=== PATIENT | female | born 1980 | race Caucasian/White ===

== ENCOUNTER 2016-10-14 18:10 | Emergency (ER) | payer OTHER ==
[~2016-10-14] VITALS: Ht 154.9 cm; Wt 63.7 kg
[~2016-10-14 18:10] MED LIST: ALBUTEROL SULF8.5 GM IH; ALPRAZOLAM0.25 M2 PO; ALPRAZOLAM0.5 MG PO; AMITRIPTYLINE H10 MG PO; BENTYL10 MG PO; BENTYL20 MG PO; CIPROFLOXACIN500 M1 PO; DOXYCYCLINE HY100 M3 PO; ESCITALOPRAM OX20 MG PO; FLEXERIL10 MG PO; FLEXERIL5 MG PO; FLONASE16 G1 BOTH NARES; GUAIFENESIN600 MG PO; IMITREX100 MG PO; IMODIUM A-1 MG/7.5 M PO; IMODIUM MS REL1 EACH PO; MORGIDOX100 MG PO; MOTRIN600 MG PO; MOTRIN800 MG PO; NAPROSYN500 MG PO; NOHOMEMEDS; OMEPRAZOLE20 MG PO; PERCOCET 5/31 TABLET PO; REMERON15 M2 PO; ROBITUSSIN AC,T10 ML PO; TESSALON PERLE100 MG PO; TRAMADOL HCL50 MG PO; TRAZODONE HCL50 MG PO; TRI-PREVIFEM1 EACH PO; ULTRAM50 MG PO; WELLBUTRIN SR150 MG PO; ZITHROMAX Z-PA250 MG PO; ZOFRAN ODT4 MG PO; ZOFRAN4 MG PO
[2016-10-14] MEDS ORDERED: FLEXERIL10 MG PO (18:21)
[2016-10-14] MEDS ORDERED: NORCO 5/3251 TABLET PO (18:21)
[2016-10-14 18:30] VITALS: BP 148/93
== END 2016-10-14 18:31 | disposition home or self-care (01) ==
LOC: EME 18:10
DX: S39.012A Strain of muscle, fascia and tendon of lower back, initial encounter (principal); X50.0XXA Overexertion from strenuous movement or load, initial encounter; Y93.89 Activity, other specified
CPT/HCPCS: 99281; 99283

== ENCOUNTER 2016-10-24 09:21 | Emergency (ER) | payer OTHER ==
[~2016-10-24] VITALS: Ht 157.5 cm; Wt 64.4 kg
[~2016-10-24 09:21] MED LIST changes: +NORCO 5/3251 TABLET PO
[2016-10-24 11:35] VITALS: BP 131/106
[2016-10-24] MEDS ORDERED: LIDODERM 5% P1 PATCH TD (11:39)
[2016-10-24] MEDS ORDERED: BACLOFEN10 MG PO (11:39)
== END 2016-10-24 11:35 | disposition home or self-care (01) ==
LOC: EME 09:21
DX: S39.012A Strain of muscle, fascia and tendon of lower back, initial encounter (principal); X50.9XXA Other and unspecified overexertion or strenuous movements or postures, initial encounter; Z77.22 Contact with and (suspected) exposure to environmental tobacco smoke (acute) (chronic)
CPT/HCPCS: 99281; 99285; J1885

== ENCOUNTER 2016-10-29 11:35 | Emergency (ER) | payer OTHER ==
[~2016-10-29] VITALS: Ht 157.5 cm; Wt 64.5 kg
[~2016-10-29 11:35] MED LIST changes: +BACLOFEN10 MG PO; +LIDODERM 5% P1 PATCH TD
[2016-10-29] MEDS ORDERED: LEXAPRO20 MG PO (12:26)
[2016-10-29] MEDS ORDERED: MOTRIN800 MG PO (13:45)
[2016-10-29 14:09] VITALS: BP 155/105
== END 2016-10-29 14:12 | disposition home or self-care (01) ==
LOC: EME 11:35
PROC: 2W3JX1Z Immobilization of Right Finger using Splint (ICD-10-PCS; principal; 2016-10-29)
DX: S60.051A Contusion of right little finger without damage to nail, initial encounter (principal); W22.09XA Striking against other stationary object, initial encounter; Y92.89 Other specified places as the place of occurrence of the external cause
CPT/HCPCS: 73140; 99281; 99283

== ENCOUNTER 2016-11-22 08:50 | Emergency (ER) | payer OTHER ==
[~2016-11-22] VITALS: Ht 154.9 cm; Wt 64.6 kg
[~2016-11-22 08:50] MED LIST changes: +LEXAPRO20 MG PO
[2016-11-22] MEDS ORDERED: MOTRIN800 MG PO (10:30)
[2016-11-22] MEDS ORDERED: FLEXERIL10 MG PO (10:30)
[2016-11-22 10:49] VITALS: BP 144/96
== END 2016-11-22 10:50 | disposition home or self-care (01) ==
LOC: EME 08:50
DX: S39.012A Strain of muscle, fascia and tendon of lower back, initial encounter (principal); S90.32XA Contusion of left foot, initial encounter; X50.9XXA Other and unspecified overexertion or strenuous movements or postures, initial encounter; Z88.1 Allergy status to other antibiotic agents; Z88.2 Allergy status to sulfonamides; Z91.041 Radiographic dye allergy status
CPT/HCPCS: 73630; 99281; 99284

== ENCOUNTER 2017-01-04 08:20 | Emergency (ER) | payer OTHER ==
[~2017-01-04] VITALS: Ht 157.5 cm; Wt 64.0 kg
[2017-01-04 10:08] VITALS: BP 140/94
[2017-01-04] MEDS ORDERED: FIORICET 50-301 EACH PO (10:20)
== END 2017-01-04 10:40 | disposition home or self-care (01) ==
LOC: EME 08:20
DX: G43.909 Migraine, unspecified, not intractable, without status migrainosus (principal)
CPT/HCPCS: 99281; 99284; J1200; J2765; J7030

== ENCOUNTER 2017-01-07 11:55 | Emergency (ER) | payer OTHER ==
[~2017-01-07] VITALS: Ht 157.5 cm; Wt 64.9 kg
[~2017-01-07 11:55] MED LIST changes: +FIORICET 50-301 EACH PO
[2017-01-07] MEDS ORDERED: BACLOFEN10 MG PO (13:59)
[2017-01-07] MEDS ORDERED: TYLENOL EXTRA500 MG PO (13:59)
[2017-01-07 14:27] VITALS: BP 127/99
== END 2017-01-07 14:28 | disposition home or self-care (01) ==
LOC: EME 11:55
DX: S39.012A Strain of muscle, fascia and tendon of lower back, initial encounter (principal); X50.0XXA Overexertion from strenuous movement or load, initial encounter; Z88.5 Allergy status to narcotic agent
CPT/HCPCS: 99281; 99284; J2270

== ENCOUNTER 2017-01-17 16:37 | Emergency (ER) | payer OTHER ==
[~2017-01-17] VITALS: Ht 157.5 cm; Wt 66.5 kg
[~2017-01-17 16:37] MED LIST changes: +TYLENOL EXTRA500 MG PO
[2017-01-17 19:57] VITALS: BP 141/92
== END 2017-01-17 19:58 | disposition home or self-care (01) ==
LOC: EME 16:37
PROC: 3E0234Z Introduction of Serum, Toxoid and Vaccine into Muscle, Percutaneous Approach (ICD-10-PCS; principal; 2017-01-17)
DX: S80.02XA Contusion of left knee, initial encounter (principal); S39.012A Strain of muscle, fascia and tendon of lower back, initial encounter; S80.212A Abrasion, left knee, initial encounter; W20.8XXA Other cause of strike by thrown, projected or falling object, initial encounter; Z23 Encounter for immunization
CPT/HCPCS: 73564; 99281; 99284

== ENCOUNTER 2017-01-19 15:26 | Emergency (ER) | payer OTHER ==
[~2017-01-19] VITALS: Ht 157.5 cm; Wt 64.1 kg
[2017-01-19 16:53] LABS: HEMATOCRIT 41.7 % (36.0-46.0); MCH 29.1 PG (29.0-34.0); MCHC 31.2 G/DL (30.0-36.0); MCV 93.5 FL (83-99); MEAN PLAT.VOLUME 10.1 uM^3 (9.5-12.4); PLATELET COUNT 226 K/uL (156-360); RBC DIS.WIDTH-CV 14.6 % (11.8-14.6); RBC DIS.WIDTH-SD 50.3 % (39-53); RED BLOOD COUNT 4.46 M/uL (3.80-5.20); WHITE BLOOD COUNT 14.8 K/uL (4.1-10.2)
[2017-01-19 17:01] LABS: CHLORIDE 110 mEq/L (99-109); POTASSIUM 3.8 mEq/L (3.7-5.4); SODIUM 145 mEq/L (136-147)
[2017-01-19 17:03] LABS: GLUCOSE 98 mg/dL (70-99)
[2017-01-19 17:05] LABS: ANION GAP 12 MEQ/L (2-14); TOTAL BILIRUBIN 0.2 mg/dL (0.0-1.0)
[2017-01-19 17:07] LABS: ALKALINE PHOSPHATASE 88 IU/L (3-129); GFR ESTIMATE (CALCULATED) > 59 mL/min/
[2017-01-19 17:08] LABS: UREA NITROGEN (BUN) 18 mg/dL (9-23)
[2017-01-19 17:09] LABS: DIRECT BILIRUBIN 0.2 mg/dL (0.0-0.3)
[2017-01-19 17:10] LABS: LIPASE 22 U/L (1.0-51.0)
[2017-01-19 17:40] LABS: ADD MIUA? YES; BILIRUBIN NEGATIVE; BLOOD SMALL; COLOR STRAW ((YELLOW)); GLUCOSE (STRIP) NEGATIVE; KETONES 5; LEUKOCYTES NEGATIVE; NITRITE NEGATIVE; PROTEIN (STRIP) NEGATIVE; UROBILINOGEN 0.2 MG/DL (0.2-1.0)
[2017-01-19 17:56] LABS: BACTERIA NONE SEEN /HPF; EPITHELIAL CELLS RARE /HPF; MUCUS TRACE /LPF; RED BLOOD CELLS 0-5 /HPF (0-5); UCUL ADDED? NO; WHITE BLOOD CELLS 0-5 /HPF (0-5)
[2017-01-19] MEDS ORDERED: ZOFRAN4 MG PO (18:46)
[2017-01-19 19:09] VITALS: BP 147/94
[2017-01-20] MEDS ORDERED: ZOFRAN ODT4 MG PO (22:02)
== END 2017-01-19 19:09 | disposition home or self-care (01) ==
LOC: EME 15:26 → EXP 15:26
PROVIDERS: Emergency Medicine
DX: R11.2 Nausea with vomiting, unspecified (principal); E86.0 Dehydration; R51 Headache
CPT/HCPCS: 80048; 80076; 81003; 83690; 85027; 99281; 99284; J1885; J2405; J7030

== ENCOUNTER 2017-01-20 20:43 | Emergency (ER) | payer OTHER ==
[~2017-01-20] VITALS: Ht 157.5 cm; Wt 64.4 kg
[2017-01-20 21:36] LABS: MCH 29.9 PG (29.0-34.0); MCHC 32.2 G/DL (30.0-36.0); MCV 92.8 FL (83-99); MEAN PLAT.VOLUME 10.2 uM^3 (9.5-12.4); PLATELET COUNT 215 K/uL (156-360); RBC DIS.WIDTH-CV 14.6 % (11.8-14.6); RBC DIS.WIDTH-SD 49.4 % (39-53); RED BLOOD COUNT 3.88 M/uL (3.80-5.20); WHITE BLOOD COUNT 9.7 K/uL (4.1-10.2)
[2017-01-20 21:44] LABS: CHLORIDE 109 mEq/L (99-109); POTASSIUM 3.6 mEq/L (3.7-5.4); SODIUM 140 mEq/L (136-147)
[2017-01-20 21:46] LABS: GLUCOSE 100 mg/dL (70-99)
[2017-01-20 21:47] LABS: ANION GAP 7 MEQ/L (2-14)
[2017-01-20 21:49] LABS: ALKALINE PHOSPHATASE 76 IU/L (3-129)
[2017-01-20 21:50] LABS: GFR ESTIMATE (CALCULATED) > 59 mL/min/
[2017-01-20 21:51] LABS: UREA NITROGEN (BUN) 18 mg/dL (9-23)
[2017-01-20 21:58] LABS: QUANTITATIVE HCG < 4.0 MIU/ML; TOTAL BILIRUBIN 0.1 mg/dL (0.0-1.0)
[2017-01-20] MEDS ORDERED: ZOFRAN ODT4 MG PO (22:02)
[2017-01-20 22:22] VITALS: BP 142/100
== END 2017-01-20 22:23 | disposition home or self-care (01) ==
LOC: EME 20:43
PROVIDERS: Emergency Medicine
DX: R11.2 Nausea with vomiting, unspecified (principal); R19.7 Diarrhea, unspecified; R51 Headache
CPT/HCPCS: 80053; 84702; 85027; 99281; 99285; J2405

== ENCOUNTER 2017-01-22 19:00 | Emergency (ER) | payer OTHER ==
[~2017-01-22] VITALS: Ht 157.5 cm; Wt 63.7 kg
[2017-01-22 19:24] LABS: HEMATOCRIT 39.2 % (36.0-46.0); MCH 29.5 PG (29.0-34.0); MCHC 31.9 G/DL (30.0-36.0); MCV 92.5 FL (83-99); MEAN PLAT.VOLUME 10.3 uM^3 (9.5-12.4); PLATELET COUNT 254 K/uL (156-360); RBC DIS.WIDTH-CV 14.5 % (11.8-14.6); RBC DIS.WIDTH-SD 49.1 % (39-53); RED BLOOD COUNT 4.24 M/uL (3.80-5.20); WHITE BLOOD COUNT 13.6 K/uL (4.1-10.2)
[2017-01-22 19:31] LABS: CHLORIDE 106 mEq/L (99-109); POTASSIUM 3.8 mEq/L (3.7-5.4); SODIUM 140 mEq/L (136-147)
[2017-01-22 19:33] LABS: GLUCOSE 124 mg/dL (70-99)
[2017-01-22 19:34] LABS: ANION GAP 9 MEQ/L (2-14)
[2017-01-22 19:36] LABS: ALKALINE PHOSPHATASE 73 IU/L (3-129)
[2017-01-22 19:37] LABS: GFR ESTIMATE (CALCULATED) > 59 mL/min/
[2017-01-22 19:38] LABS: TOTAL BILIRUBIN 0.4 mg/dL (0.0-1.0); UREA NITROGEN (BUN) 12 mg/dL (9-23)
[2017-01-22 19:47] LABS: QUANTITATIVE HCG < 4.0 MIU/ML
[2017-01-22] MEDS ORDERED: ZOFRAN ODT4 MG PO (21:07)
[2017-01-22 21:28] VITALS: BP 142/83
== END 2017-01-22 21:30 | disposition home or self-care (01) ==
LOC: EME 19:00
DX: R11.2 Nausea with vomiting, unspecified (principal); R19.7 Diarrhea, unspecified; R51 Headache
CPT/HCPCS: 80053; 81003; 84702; 85027; 99281; 99284; J2550

== ENCOUNTER 2017-01-31 20:41 | Emergency (ER) | payer OTHER ==
[~2017-01-31] VITALS: Ht 157.5 cm; Wt 63.1 kg
[2017-01-31] MEDS ORDERED: FLEXERIL10 MG PO (21:24)
[2017-01-31] MEDS ORDERED: NORCO 5/3251 TABLET PO (21:24)
[2017-01-31 21:59] VITALS: BP 154/100
== END 2017-01-31 22:00 | disposition home or self-care (01) ==
LOC: EME 20:41
DX: S39.012A Strain of muscle, fascia and tendon of lower back, initial encounter (principal); X50.0XXA Overexertion from strenuous movement or load, initial encounter; Y93.E9 Activity, other interior property and clothing maintenance; Z88.1 Allergy status to other antibiotic agents; Z88.6 Allergy status to analgesic agent; Z91.041 Radiographic dye allergy status
CPT/HCPCS: 99281; 99283

== ENCOUNTER 2017-02-05 03:04 | Emergency (ER) | payer OTHER ==
[~2017-02-05] VITALS: Ht 157.5 cm; Wt 64.0 kg
[2017-02-05 03:41] LABS: ADD MIUA? NO; BILIRUBIN NEGATIVE; BLOOD NEGATIVE; COLOR YELLOW ((YELLOW)); GLUCOSE (STRIP) NEGATIVE; KETONES NEGATIVE; LEUKOCYTES NEGATIVE; NITRITE NEGATIVE; PROTEIN (STRIP) NEGATIVE; SPECIFIC GRAVITY 1.017 (1.000-1.030); UCUL ADDED? NO; UROBILINOGEN 0.2 MG/DL (0.2-1.0)
[2017-02-05 03:55] LABS: HEMATOCRIT 35.3 % (36.0-46.0); MCH 30.4 PG (29.0-34.0); MCHC 32.6 G/DL (30.0-36.0); MCV 93.4 FL (83-99); RBC DIS.WIDTH-CV 14.4 % (11.8-14.6); RBC DIS.WIDTH-SD 49.4 % (39-53); RED BLOOD COUNT 3.78 M/uL (3.80-5.20); WHITE BLOOD COUNT 6.9 K/uL (4.1-10.2)
[2017-02-05 04:08] LABS: CHLORIDE 106 mEq/L (99-109); POTASSIUM 3.7 mEq/L (3.7-5.4); SODIUM 142 mEq/L (136-147)
[2017-02-05 04:10] LABS: GLUCOSE 99 mg/dL (70-99)
[2017-02-05 04:11] LABS: ANION GAP 7 MEQ/L (2-14)
[2017-02-05 04:14] LABS: GFR ESTIMATE (CALCULATED) > 59 mL/min/
[2017-02-05 04:15] LABS: UREA NITROGEN (BUN) 15 mg/dL (9-23)
[2017-02-05 04:25] LABS: QUANTITATIVE HCG < 4.0 MIU/ML
[2017-02-05] MEDS ORDERED: ANTIVERT25 MG PO (05:00)
[2017-02-05 05:08] VITALS: BP 115/90
[2017-02-05 05:14] LABS: HEMATOLOGY COMMENT 1 SMEAR COMPATIBLE; MEAN PLAT.VOLUME 10.3 uM^3 (9.5-12.4); PLAT.SUFFICIENCY ADEQUATE; PLATELET COUNT 177 K/uL (156-360)
== END 2017-02-05 05:08 | disposition home or self-care (01) ==
LOC: EME 03:04
PROVIDERS: Emergency Medicine
DX: R42 Dizziness and giddiness (principal)
CPT/HCPCS: 80048; 81003; 84702; 85027; 99281; 99284

== ENCOUNTER 2017-02-05 22:58 | Emergency (ER) | payer OTHER ==
[~2017-02-05] VITALS: Ht 157.5 cm; Wt 67.1 kg
[~2017-02-05 22:58] MED LIST changes: +ANTIVERT25 MG PO
[2017-02-05 23:14] VITALS: BP 120/85
[2017-02-05 23:38] LABS: HEMATOCRIT 36.1 % (36.0-46.0); MCH 29.5 PG (29.0-34.0); MCHC 31.9 G/DL (30.0-36.0); MCV 92.6 FL (83-99); MEAN PLAT.VOLUME 10.5 uM^3 (9.5-12.4); PLATELET COUNT 181 K/uL (156-360); RBC DIS.WIDTH-CV 14.3 % (11.8-14.6); RBC DIS.WIDTH-SD 48.3 % (39-53); WHITE BLOOD COUNT 7.7 K/uL (4.1-10.2)
[2017-02-05 23:54] LABS: CHLORIDE 106 mEq/L (99-109); POTASSIUM 3.6 mEq/L (3.7-5.4); SODIUM 142 mEq/L (136-147)
[2017-02-05 23:56] LABS: GLUCOSE 110 mg/dL (70-99)
[2017-02-05 23:57] LABS: ANION GAP 9 MEQ/L (2-14)
[2017-02-05 23:58] LABS: TOTAL BILIRUBIN 0.3 mg/dL (0.0-1.0)
[2017-02-06] LABS: ALKALINE PHOSPHATASE 81 IU/L (3-129); GFR ESTIMATE (CALCULATED) > 59 mL/min/
[2017-02-06 00:01] LABS: UREA NITROGEN (BUN) 18 mg/dL (9-23)
[2017-02-06 00:09] LABS: QUANTITATIVE HCG < 4.0 MIU/ML
== END 2017-02-06 01:33 | disposition left against medical advice (07) ==
LOC: EME 22:58
DX: F41.9 Anxiety disorder, unspecified (principal); F32.9 Major depressive disorder, single episode, unspecified; R07.9 Chest pain, unspecified; R11.0 Nausea; Z53.21 Procedure and treatment not carried out due to patient leaving prior to being seen by health care provider
CPT/HCPCS: 80053; 84702; 85027

== ENCOUNTER 2017-02-06 12:01 | Emergency (ER) | payer OTHER ==
[~2017-02-06] VITALS: Ht 157.5 cm; Wt 66.4 kg
[2017-02-06 14:06] LABS: HEMATOCRIT 38.4 % (36.0-46.0); MCH 29.6 PG (29.0-34.0); MCHC 31.5 G/DL (30.0-36.0); MCV 93.9 FL (83-99); PLATELET COUNT 193 K/uL (156-360); RBC DIS.WIDTH-CV 14.3 % (11.8-14.6); RBC DIS.WIDTH-SD 49.4 % (39-53); RED BLOOD COUNT 4.09 M/uL (3.80-5.20); WHITE BLOOD COUNT 6.7 K/uL (4.1-10.2)
[2017-02-06 14:21] LABS: D-DIMER ELISA 0.23 mg/L FEU (< 0.57)
[2017-02-06 14:24] LABS: CHLORIDE 106 mEq/L (99-109); POTASSIUM 4.1 mEq/L (3.7-5.4); SODIUM 142 mEq/L (136-147)
[2017-02-06 14:25] LABS: GLUCOSE 103 mg/dL (70-99)
[2017-02-06 14:27] LABS: ANION GAP 8 MEQ/L (2-14)
[2017-02-06 14:29] LABS: GFR ESTIMATE (CALCULATED) > 59 mL/min/; TROP-I INTERPRETATION NEGATIVE; TROPONIN-I < 0.01 ng/mL (0.0-0.30)
[2017-02-06 14:30] LABS: UREA NITROGEN (BUN) 15 mg/dL (9-23)
[2017-02-06 14:40] LABS: QUANTITATIVE HCG < 4.0 MIU/ML
[2017-02-06 15:15] VITALS: BP 120/69
== END 2017-02-06 15:16 | disposition home or self-care (01) ==
LOC: EME 12:01
PROVIDERS: Emergency Medicine
DX: R07.9 Chest pain, unspecified (principal); R73.9 Hyperglycemia, unspecified; R42 Dizziness and giddiness
CPT/HCPCS: 71020; 80048; 81003; 84484; 84702; 85027; 85379; 93005; 99281; 99285

== ENCOUNTER 2017-02-07 00:54 | Emergency (ER) | payer OTHER ==
[~2017-02-07] VITALS: Ht 157.5 cm; Wt 65.7 kg
[2017-02-07 01:42] LABS: HEMATOCRIT 34.8 % (36.0-46.0); MCH 29.7 PG (29.0-34.0); MCHC 31.9 G/DL (30.0-36.0); MEAN PLAT.VOLUME 9.9 uM^3 (9.5-12.4); PLATELET COUNT 181 K/uL (156-360); RBC DIS.WIDTH-CV 14.3 % (11.8-14.6); RBC DIS.WIDTH-SD 48.9 % (39-53); RED BLOOD COUNT 3.74 M/uL (3.80-5.20)
[2017-02-07 01:46] LABS: WHITE BLOOD COUNT 9.3 K/uL (4.1-10.2)
[2017-02-07 01:51] LABS: CHLORIDE 107 mEq/L (99-109); POTASSIUM 3.7 mEq/L (3.7-5.4); SODIUM 142 mEq/L (136-147)
[2017-02-07 01:52] LABS: GLUCOSE 100 mg/dL (70-99)
[2017-02-07 01:54] LABS: ANION GAP 10 MEQ/L (2-14)
[2017-02-07 01:56] LABS: GFR ESTIMATE (CALCULATED) > 59 mL/min/
[2017-02-07 01:59] LABS: UREA NITROGEN (BUN) 27 mg/dL (9-23)
[2017-02-07 02:06] LABS: TROP-I INTERPRETATION NEGATIVE; TROPONIN-I < 0.01 ng/mL (0.0-0.30)
[2017-02-07 02:07] LABS: QUANTITATIVE HCG < 4.0 MIU/ML
[2017-02-07 02:36] VITALS: BP 115/80
== END 2017-02-07 02:36 | disposition home or self-care (01) ==
LOC: EME 00:54
PROVIDERS: Emergency Medicine
DX: R07.9 Chest pain, unspecified (principal); F32.9 Major depressive disorder, single episode, unspecified; I10 Essential (primary) hypertension; G43.909 Migraine, unspecified, not intractable, without status migrainosus; R11.0 Nausea
CPT/HCPCS: 71010; 80048; 84484; 84702; 85027; 93005; 99281; 99284

== ENCOUNTER 2017-02-07 22:44 | Emergency (ER) | payer OTHER ==
[~2017-02-07] VITALS: Ht 157.5 cm; Wt 66.0 kg
[2017-02-07 22:52] VITALS: BP 161/104
== END 2017-02-08 01:27 | disposition left against medical advice (07) ==
LOC: EME 22:44
DX: M54.9 Dorsalgia, unspecified (principal); F41.9 Anxiety disorder, unspecified; F32.9 Major depressive disorder, single episode, unspecified; Z53.21 Procedure and treatment not carried out due to patient leaving prior to being seen by health care provider

== ENCOUNTER 2017-02-08 21:53 | Emergency (ER) | payer OTHER ==
[~2017-02-08] VITALS: Ht 157.5 cm; Wt 64.8 kg
[2017-02-08 23:36] LABS: MCH 29.8 PG (29.0-34.0); MCHC 32.2 G/DL (30.0-36.0); MCV 92.7 FL (83-99); MEAN PLAT.VOLUME 10.7 uM^3 (9.5-12.4); PLATELET COUNT 192 K/uL (156-360); RBC DIS.WIDTH-CV 14.2 % (11.8-14.6); RBC DIS.WIDTH-SD 48.7 % (39-53); RED BLOOD COUNT 3.99 M/uL (3.80-5.20)
[2017-02-08 23:38] LABS: WHITE BLOOD COUNT 8.3 K/uL (4.1-10.2)
[2017-02-09 00:07] LABS: CHLORIDE 106 mEq/L (99-109); SODIUM 140 mEq/L (136-147)
[2017-02-09 00:08] LABS: GLUCOSE 87 mg/dL (70-99)
[2017-02-09 00:09] LABS: TROP-I INTERPRETATION NEGATIVE; TROPONIN-I < 0.01 ng/mL (0.0-0.30)
[2017-02-09 00:10] LABS: ANION GAP 9 MEQ/L (2-14); POTASSIUM 3.2 mEq/L (3.7-5.4)
[2017-02-09 00:12] LABS: GFR ESTIMATE (CALCULATED) > 59 mL/min/
[2017-02-09 00:13] LABS: UREA NITROGEN (BUN) 16 mg/dL (9-23)
[2017-02-09 00:52] VITALS: BP 126/83
== END 2017-02-09 00:56 | disposition home or self-care (01) ==
LOC: EME 21:53
DX: R07.89 Other chest pain (principal); F41.9 Anxiety disorder, unspecified; I10 Essential (primary) hypertension; R53.1 Weakness; R11.0 Nausea; Z91.19 Patient's noncompliance with other medical treatment and regimen
CPT/HCPCS: 71020; 80048; 84484; 85027; 93005; 99281; 99283

== ENCOUNTER 2017-02-11 21:56 | Emergency (ER) | payer OTHER ==
[~2017-02-11] VITALS: Ht 157.5 cm; Wt 67.4 kg
[2017-02-12] MEDS ORDERED: ULTRAM50 MG PO (00:51)
[2017-02-12 01:02] VITALS: BP 110/83
[2017-02-12] MEDS ORDERED: ANTIVERT25 MG PO (15:38)
== END 2017-02-12 01:24 | disposition home or self-care (01) ==
LOC: EME 21:56
DX: M54.5 Low back pain (principal); S09.90XA Unspecified injury of head, initial encounter; W10.9XXA Fall (on) (from) unspecified stairs and steps, initial encounter; Z88.1 Allergy status to other antibiotic agents; Z88.6 Allergy status to analgesic agent; Z91.041 Radiographic dye allergy status
CPT/HCPCS: 99281; 99284

== ENCOUNTER 2017-02-12 13:40 | Emergency (ER) | payer OTHER ==
[~2017-02-12] VITALS: Ht 157.5 cm; Wt 67.2 kg
[2017-02-12 15:16] LABS: HEMATOCRIT 33.6 % (36.0-46.0); MCH 29.5 PG (29.0-34.0); MCHC 31.3 G/DL (30.0-36.0); MCV 94.4 FL (83-99); MEAN PLAT.VOLUME 10.7 uM^3 (9.5-12.4); PLATELET COUNT 166 K/uL (156-360); RBC DIS.WIDTH-SD 48.2 % (39-53); RED BLOOD COUNT 3.56 M/uL (3.80-5.20); WHITE BLOOD COUNT 8.1 K/uL (4.1-10.2)
[2017-02-12 15:34] LABS: CHLORIDE 106 mEq/L (99-109)
[2017-02-12 15:35] LABS: SODIUM 140 mEq/L (136-147)
[2017-02-12 15:37] LABS: GLUCOSE 107 mg/dL (70-99)
[2017-02-12 15:38] LABS: ANION GAP 7 MEQ/L (2-14)
[2017-02-12] MEDS ORDERED: ANTIVERT25 MG PO (15:38)
[2017-02-12 15:40] LABS: ALKALINE PHOSPHATASE 62 IU/L (3-129); GFR ESTIMATE (CALCULATED) > 59 mL/min/; POTASSIUM 4.2 mEq/L (3.7-5.4); TOTAL BILIRUBIN 0.2 mg/dL (0.0-1.0)
[2017-02-12 15:42] LABS: UREA NITROGEN (BUN) 13 mg/dL (9-23)
[2017-02-12 15:52] LABS: QUANTITATIVE HCG < 4.0 MIU/ML
[2017-02-12 16:16] VITALS: BP 122/63
== END 2017-02-12 16:18 | disposition home or self-care (01) ==
LOC: EME 13:40
PROVIDERS: Nurse Practitioner Family
DX: R42 Dizziness and giddiness (principal); I10 Essential (primary) hypertension; Z88.1 Allergy status to other antibiotic agents; Z88.6 Allergy status to analgesic agent; Z91.041 Radiographic dye allergy status
CPT/HCPCS: 80053; 84702; 85027; 99281; 99285; J2405; J7030

== ENCOUNTER 2017-02-16 18:45 | Emergency (ER) | payer OTHER ==
[~2017-02-16] VITALS: Ht 157.5 cm; Wt 65.7 kg
[2017-02-16] MEDS ORDERED: LEXAPRO20 MG PO (20:03)
[2017-02-16 20:11] VITALS: BP 127/78
[2017-02-17] MEDS ORDERED: INDERAL40 MG PO (19:10)
[2017-02-17] MEDS ORDERED: LEXAPRO20 MG PO (19:16)
[2017-02-17] MEDS ORDERED: ATARAX,VISTARIL25 MG PO (19:16)
== END 2017-02-16 20:12 | disposition home or self-care (01) ==
LOC: EME 18:45
DX: Z76.0 Encounter for issue of repeat prescription (principal); F32.9 Major depressive disorder, single episode, unspecified; F41.9 Anxiety disorder, unspecified; I10 Essential (primary) hypertension
CPT/HCPCS: 99281; 99283

== ENCOUNTER 2017-02-17 18:58 | Emergency (ER) | payer OTHER ==
[~2017-02-17] VITALS: Ht 157.5 cm; Wt 67.2 kg
[2017-02-17] MEDS ORDERED: INDERAL40 MG PO (19:10)
[2017-02-17] MEDS ORDERED: LEXAPRO20 MG PO (19:16)
[2017-02-17] MEDS ORDERED: ATARAX,VISTARIL25 MG PO (19:16)
[2017-02-17 19:28] VITALS: BP 140/99
== END 2017-02-17 19:53 | disposition home or self-care (01) ==
LOC: EME 18:58
DX: F32.9 Major depressive disorder, single episode, unspecified (principal); F41.9 Anxiety disorder, unspecified; I10 Essential (primary) hypertension; Z88.1 Allergy status to other antibiotic agents; Z88.6 Allergy status to analgesic agent; Z91.041 Radiographic dye allergy status; Z88.2 Allergy status to sulfonamides
CPT/HCPCS: 80048; 85027; 99281; 99284; G0480; Q0177

== ENCOUNTER 2017-02-18 19:10 | Emergency (ER) | payer OTHER ==
[~2017-02-18] VITALS: Ht 157.5 cm; Wt 65.1 kg
[~2017-02-18 19:10] MED LIST changes: +ATARAX,VISTARIL25 MG PO; +INDERAL40 MG PO
[2017-02-18 19:13] VITALS: BP 136/90
== END 2017-02-18 21:04 | disposition left against medical advice (07) ==
LOC: EME 19:10
DX: M54.5 Low back pain (principal); Z53.21 Procedure and treatment not carried out due to patient leaving prior to being seen by health care provider
CPT/HCPCS: 99281; 99283

== ENCOUNTER 2017-02-20 19:53 | Emergency (ER) | payer OTHER ==
[~2017-02-20] VITALS: Ht 157.5 cm; Wt 67.1 kg
[2017-02-20 20:43] LABS: CHLORIDE 107 mEq/L (99-109); HEMATOCRIT 36.4 % (36.0-46.0); MCH 29.5 PG (29.0-34.0); MCHC 32.1 G/DL (30.0-36.0); MCV 91.7 FL (83-99); MEAN PLAT.VOLUME 9.7 uM^3 (9.5-12.4); PLATELET COUNT 229 K/uL (156-360); RBC DIS.WIDTH-SD 47.3 % (39-53); RED BLOOD COUNT 3.97 M/uL (3.80-5.20); SODIUM 143 mEq/L (136-147); WHITE BLOOD COUNT 7.8 K/uL (4.1-10.2)
[2017-02-20 20:44] LABS: GLUCOSE 111 mg/dL (70-99)
[2017-02-20 20:46] LABS: ANION GAP 8 MEQ/L (2-14)
[2017-02-20 20:48] LABS: GFR ESTIMATE (CALCULATED) > 59 mL/min/
[2017-02-20 20:49] LABS: UREA NITROGEN (BUN) 14 mg/dL (9-23)
[2017-02-20 20:55] LABS: TROP-I INTERPRETATION NEGATIVE; TROPONIN-I < 0.01 ng/mL (0.0-0.30)
[2017-02-20 22:18] LABS: D-DIMER ELISA 0.27 mg/L FEU (< 0.57)
[2017-02-20 23:22] LABS: TROP-I INTERPRETATION NEGATIVE; TROPONIN-I < 0.01 ng/mL (0.0-0.30)
[2017-02-20 23:46] VITALS: BP 142/89
== END 2017-02-20 23:48 | disposition home or self-care (01) ==
LOC: EME 19:53
PROVIDERS: Emergency Medicine
DX: R07.9 Chest pain, unspecified (principal); F41.1 Generalized anxiety disorder; R06.02 Shortness of breath; R42 Dizziness and giddiness; R11.0 Nausea; I10 Essential (primary) hypertension
CPT/HCPCS: 71020; 80048; 84484; 85027; 85379; 93005; 99281; 99284

== ENCOUNTER 2017-02-23 20:43 | Emergency (ER) | payer OTHER ==
[~2017-02-23] VITALS: Ht 157.5 cm; Wt 66.7 kg
[2017-02-23 21:06] LABS: ADD MIUA? YES; BILIRUBIN NEGATIVE; BLOOD NEGATIVE; COLOR YELLOW ((YELLOW)); GLUCOSE (STRIP) NEGATIVE; KETONES NEGATIVE; LEUKOCYTES TRACE; NITRITE NEGATIVE; PROTEIN (STRIP) NEGATIVE; SPECIFIC GRAVITY 1.014 (1.000-1.030); UROBILINOGEN 0.2 MG/DL (0.2-1.0)
[2017-02-23 21:08] LABS: BACTERIA RARE /HPF; EPITHELIAL CELLS 1+ /HPF; MUCUS TRACE /LPF; RED BLOOD CELLS 0-5 /HPF (0-5); UCUL ADDED? NO; WHITE BLOOD CELLS 0-5 /HPF (0-5)
[2017-02-23 22:42] LABS: HEMATOCRIT 37.2 % (36.0-46.0); MCH 29.5 PG (29.0-34.0); MCHC 32.3 G/DL (30.0-36.0); MCV 91.4 FL (83-99); MEAN PLAT.VOLUME 10.3 uM^3 (9.5-12.4); PLATELET COUNT 234 K/uL (156-360); RBC DIS.WIDTH-CV 14.2 % (11.8-14.6); RBC DIS.WIDTH-SD 47.8 % (39-53); RED BLOOD COUNT 4.07 M/uL (3.80-5.20); WHITE BLOOD COUNT 9.1 K/uL (4.1-10.2)
[2017-02-23 22:48] LABS: CHLORIDE 107 mEq/L (99-109); POTASSIUM 3.9 mEq/L (3.7-5.4); SODIUM 141 mEq/L (136-147)
[2017-02-23 22:50] LABS: GLUCOSE 87 mg/dL (70-99)
[2017-02-23 22:52] LABS: ANION GAP 7 MEQ/L (2-14); TOTAL BILIRUBIN 0.3 mg/dL (0.0-1.0)
[2017-02-23 22:54] LABS: ALKALINE PHOSPHATASE 70 IU/L (3-129); GFR ESTIMATE (CALCULATED) > 59 mL/min/
[2017-02-23 22:55] LABS: UREA NITROGEN (BUN) 12 mg/dL (9-23)
[2017-02-23 23:06] LABS: QUANTITATIVE HCG < 4.0 MIU/ML
[2017-02-24 03:44] VITALS: BP 136/71
== END 2017-02-24 03:44 | disposition home or self-care (01) ==
LOC: EME 20:43
DX: R11.0 Nausea (principal); R10.9 Unspecified abdominal pain; I10 Essential (primary) hypertension; F32.9 Major depressive disorder, single episode, unspecified; Z88.0 Allergy status to penicillin
CPT/HCPCS: 80053; 81003; 84702; 85027; 99281; 99284

== ENCOUNTER 2017-02-26 23:20 | Emergency (ER) | payer OTHER ==
[~2017-02-26] VITALS: Ht 157.5 cm; Wt 66.4 kg
[2017-02-27] MEDS ORDERED: AUGMENTIN875 MG PO (02:00)
[2017-02-27] MEDS ORDERED: NORCO 5/3251 TABLET PO (02:00)
[2017-02-27 02:13] VITALS: BP 108/65
== END 2017-02-27 02:14 | disposition home or self-care (01) ==
LOC: EME 23:20
DX: H66.92 Otitis media, unspecified, left ear (principal); Z88.1 Allergy status to other antibiotic agents; Z88.6 Allergy status to analgesic agent; Z88.2 Allergy status to sulfonamides; Z88.5 Allergy status to narcotic agent; Z91.041 Radiographic dye allergy status; Z88.8 Allergy status to other drugs, medicaments and biological substances
CPT/HCPCS: 99281; 99284

== ENCOUNTER 2017-04-12 04:46 | Emergency (ER) | payer OTHER ==
[~2017-04-12] VITALS: Ht 157.5 cm; Wt 71.7 kg
[~2017-04-12 04:46] MED LIST changes: +AUGMENTIN875 MG PO
[2017-04-12 05:39] VITALS: BP 153/105
== END 2017-04-12 06:03 | disposition home or self-care (01) ==
LOC: EME → EDBD 04:46 → EME 04:46
DX: R51 Headache (principal); I10 Essential (primary) hypertension; F32.9 Major depressive disorder, single episode, unspecified; Z88.0 Allergy status to penicillin
CPT/HCPCS: 99281; 99285; J0780; J1200; J1885; J7030

== ENCOUNTER 2017-04-23 17:09 | Emergency (ER) | payer OTHER ==
[~2017-04-23] VITALS: Ht 160 cm; Wt 66.9 kg
[2017-04-23] MEDS ORDERED: FIORICET 50-301 EACH PO (18:18)
[2017-04-23 18:30] VITALS: BP 153/101
== END 2017-04-23 18:30 | disposition home or self-care (01) ==
LOC: EME 17:09
DX: M25.561 Pain in right knee (principal); I10 Essential (primary) hypertension; R51 Headache; Z82.49 Family history of ischemic heart disease and other diseases of the circulatory system; Z88.0 Allergy status to penicillin
CPT/HCPCS: 99281; 99283

== ENCOUNTER 2017-04-25 03:46 | Emergency (ER) | payer OTHER ==
[~2017-04-25] VITALS: Ht 157.5 cm; Wt 67.4 kg
[2017-04-25 04:45] VITALS: BP 121/84
== END 2017-04-25 04:49 | disposition home or self-care (01) ==
LOC: EME → EDBD 03:46 → EME 03:46
DX: G43.909 Migraine, unspecified, not intractable, without status migrainosus (principal); I10 Essential (primary) hypertension
CPT/HCPCS: 99281; 99284; J0780

== ENCOUNTER 2017-04-26 09:58 | Emergency (ER) | payer OTHER ==
[~2017-04-26] VITALS: Ht 157.5 cm; Wt 67.0 kg
[2017-04-26 11:14] VITALS: BP 114/74
== END 2017-04-26 11:14 | disposition home or self-care (01) ==
LOC: EME 09:58
DX: H92.03 Otalgia, bilateral (principal); G89.29 Other chronic pain; M25.561 Pain in right knee; I10 Essential (primary) hypertension
CPT/HCPCS: 73564; 99281; 99284

== ENCOUNTER 2017-05-04 15:47 | Emergency (ER) | payer OTHER ==
[~2017-05-04] VITALS: Ht 157.5 cm; Wt 68.9 kg
[2017-05-04 16:34] LABS: BASOPHIL COUNT 0.1 K/uL (0-0.1); EOSINOPHIL (%) 1.3 % (0-5); EOSINOPHIL COUNT 0.1 K/uL (0-0.3); HEMATOCRIT 35.9 % (36.0-46.0); IMMATURE GRANULOCYTE (%) 0.4 % (0.0-0.7); INSTRUMENT ABS NEUTROPHIL CT 5.9 K/uL; LYMPHOCYTE COUNT 2.3 K/uL (1.0-2.8); MCH 30.2 PG (29.0-34.0); MCHC 32.6 G/DL (30.0-36.0); MCV 92.8 FL (83-99); MEAN PLAT.VOLUME 10.2 uM^3 (9.5-12.4); MONOCYTE (%) 10.6 % (3-12); NEUTROPHIL (%) 62.4 % (45-76); NEUTROPHIL COUNT 5.9 K/uL (1.8-6.4); PLATELET COUNT 244 K/uL (156-360); RBC DIS.WIDTH-CV 14.5 % (11.8-14.6); RBC DIS.WIDTH-SD 49.1 % (39-53); RED BLOOD COUNT 3.87 M/uL (3.80-5.20); WHITE BLOOD COUNT 9.4 K/uL (4.1-10.2)
[2017-05-04 16:42] LABS: CHLORIDE 107 mEq/L (99-109); POTASSIUM 3.7 mEq/L (3.7-5.4); SODIUM 143 mEq/L (136-147)
[2017-05-04 16:44] LABS: GLUCOSE 95 mg/dL (70-99)
[2017-05-04 16:45] LABS: ANION GAP 11 MEQ/L (2-14)
[2017-05-04 16:48] LABS: GFR ESTIMATE (CALCULATED) > 59 mL/min/
[2017-05-04 16:49] LABS: UREA NITROGEN (BUN) 14 mg/dL (9-23)
[2017-05-04 16:55] LABS: TROP-I INTERPRETATION NEGATIVE; TROPONIN-I < 0.01 ng/mL (0.0-0.30)
[2017-05-04 17:48] VITALS: BP 134/89
== END 2017-05-04 17:48 | disposition home or self-care (01) ==
LOC: EME 15:47
PROVIDERS: Emergency Medicine
DX: R07.9 Chest pain, unspecified (principal)
CPT/HCPCS: 71020; 80048; 84484; 85025; 93005; 99281; 99284

== ENCOUNTER 2017-05-05 15:12 | Emergency (ER) | payer OTHER ==
[~2017-05-05] VITALS: Ht 157.5 cm; Wt 70.6 kg
[2017-05-05 18:38] VITALS: BP 127/99
== END 2017-05-05 18:39 | disposition home or self-care (01) ==
LOC: EME 15:12
DX: R51 Headache (principal); I10 Essential (primary) hypertension
CPT/HCPCS: 70450; 99281; 99284; J3030

== ENCOUNTER 2017-05-09 08:02 | Emergency (ER) | payer OTHER ==
[~2017-05-09] VITALS: Ht 157.5 cm; Wt 70.5 kg
[2017-05-09] MEDS ORDERED: AMOXICILLIN500 MG PO (09:58)
[2017-05-09] MEDS ORDERED: TYLENOL REGULA325 MG PO (09:58)
[2017-05-09 10:07] VITALS: BP 149/71
== END 2017-05-09 10:15 | disposition home or self-care (01) ==
LOC: EME 08:02
DX: J02.9 Acute pharyngitis, unspecified (principal); J40 Bronchitis, not specified as acute or chronic; H92.03 Otalgia, bilateral; Z88.1 Allergy status to other antibiotic agents
CPT/HCPCS: 99281; 99283

== ENCOUNTER 2017-08-06 21:54 | Emergency (ER) | payer OTHER ==
[~2017-08-06] VITALS: Ht 157.5 cm; Wt 68.0 kg
[~2017-08-06 21:54] MED LIST changes: +AMOXICILLIN500 MG PO; +TYLENOL REGULA325 MG PO
[2017-08-06 23:16] LABS: EOSINOPHIL COUNT 0.1 K/uL (0-0.3); HEMATOCRIT 33.1 % (36.0-46.0); IMMATURE GRANULOCYTE (%) 0.7 % (0.0-0.7); IMMATURE GRANULOCYTE COUNT 0.1 K/uL; INSTRUMENT ABS NEUTROPHIL CT 5.3 K/uL; LYMPHOCYTE COUNT 1.4 K/uL (1.0-2.8); MCH 30.2 PG (29.0-34.0); MCHC 32.6 G/DL (30.0-36.0); MCV 92.5 FL (83-99); MEAN PLAT.VOLUME 10.9 uM^3 (9.5-12.4); MONOCYTE (%) 10.3 % (3-12); MONOCYTE COUNT 0.8 K/uL (0-0.8); NEUTROPHIL (%) 69.4 % (45-76); NEUTROPHIL COUNT 5.3 K/uL (1.8-6.4); PLATELET COUNT 169 K/uL (156-360); RBC DIS.WIDTH-SD 44.4 % (39-53); RED BLOOD COUNT 3.58 M/uL (3.80-5.20); WHITE BLOOD COUNT 7.7 K/uL (4.1-10.2)
[2017-08-06 23:23] LABS: PROTHROMBIN TIME 11.9 SEC (10.2-12.9)
[2017-08-06 23:25] LABS: D-DIMER ELISA < 150.00 ng/mLDDU (<230); PTT 32.1 SEC (25-37)
[2017-08-06 23:27] LABS: CHLORIDE 108 mEq/L (99-109); POTASSIUM 3.7 mEq/L (3.7-5.4); SODIUM 141 mEq/L (136-147)
[2017-08-06 23:28] LABS: GLUCOSE 109 mg/dL (70-99)
[2017-08-06 23:30] LABS: ANION GAP 9 MEQ/L (2-14)
[2017-08-06 23:32] LABS: GFR ESTIMATE (CALCULATED) > 59 mL/min/
[2017-08-06 23:33] LABS: UREA NITROGEN (BUN) 13 mg/dL (9-23)
[2017-08-06 23:39] LABS: TROP-I INTERPRETATION NEGATIVE; TROPONIN-I < 0.01 ng/mL (0.0-0.30)
[2017-08-07] MEDS ORDERED: TYLENOL REGULA325 MG PO (00:12)
[2017-08-07 00:25] VITALS: BP 121/82
== END 2017-08-07 00:32 | disposition home or self-care (01) ==
LOC: EME → EDBD 21:54 → EME 08-07 00:32
PROVIDERS: Emergency Medicine
DX: R07.9 Chest pain, unspecified (principal); M79.605 Pain in left leg; M79.604 Pain in right leg; I10 Essential (primary) hypertension; F32.9 Major depressive disorder, single episode, unspecified; Z88.1 Allergy status to other antibiotic agents; Z88.8 Allergy status to other drugs, medicaments and biological substances
CPT/HCPCS: 71020; 80048; 84484; 85025; 85379; 85610; 85730; 99281; 99285

== ENCOUNTER 2017-08-16 09:22 | Emergency (ER) | payer OTHER ==
[~2017-08-16] VITALS: Ht 157.5 cm; Wt 69.3 kg
[2017-08-16 10:10] LABS: HEMATOCRIT 37.7 % (36.0-46.0); MCH 29.5 PG (29.0-34.0); MCHC 31.6 G/DL (30.0-36.0); MCV 93.3 FL (83-99); MEAN PLAT.VOLUME 10.4 uM^3 (9.5-12.4); RED BLOOD COUNT 4.04 M/uL (3.80-5.20); WHITE BLOOD COUNT 6.8 K/uL (4.1-10.2)
[2017-08-16 10:12] LABS: PLATELET COUNT 262 K/uL (156-360)
[2017-08-16 10:34] LABS: ANION GAP 6 MEQ/L (2-14); CHLORIDE 103 MEQ/L (99-109); POTASSIUM 3.1 MEQ/L (3.7-5.4); SAMPLE HEMOLYSIS CHECK 0; SAMPLE ICTERIC CHECK 0; SAMPLE LIPEMIA CHECK 0; SODIUM 141 MEQ/L (136-147)
[2017-08-16 10:39] LABS: GFR ESTIMATE (CALCULATED) > 59 mL/min/; GLUCOSE 104 mg/dL (70-99); UREA NITROGEN (BUN) 13 mg/dL (9-23)
[2017-08-16 11:25] LABS: ADD MIUA? YES; BILIRUBIN SMALL; BLOOD SMALL; COLOR AMBER ((YELLOW)); GLUCOSE (STRIP) NEGATIVE; KETONES 5; LEUKOCYTES LARGE; NITRITE NEGATIVE; PROTEIN (STRIP) 30; SPECIFIC GRAVITY 1.032 (1.000-1.030)
[2017-08-16 11:45] LABS: BACTERIA RARE /HPF; CALCIUM OXALATE CRYSTALS 3+ /HPF; EPITHELIAL CELLS 2+ /HPF; MUCUS 1+ /LPF; UCUL ADDED? YES; WHITE BLOOD CELLS 40-50 /HPF (0-5)
[2017-08-16] MEDS ORDERED: ZOFRAN ODT8 MG PO (12:24)
[2017-08-16] MEDS ORDERED: KEFLEX500 MG PO (12:24)
[2017-08-16 13:02] VITALS: BP 138/94
== END 2017-08-16 13:03 | disposition home or self-care (01) ==
LOC: EME 09:22
DX: N39.0 Urinary tract infection, site not specified (principal); R11.2 Nausea with vomiting, unspecified; R19.7 Diarrhea, unspecified; M79.604 Pain in right leg; M79.605 Pain in left leg; E87.6 Hypokalemia; I10 Essential (primary) hypertension
CPT/HCPCS: 80048; 81003; 85027; 87086; 99281; 99284

== ENCOUNTER 2017-08-24 09:34 | Emergency (ER) | payer OTHER ==
[~2017-08-24] VITALS: Ht 157.5 cm; Wt 69.1 kg
[~2017-08-24 09:34] MED LIST changes: +KEFLEX500 MG PO; +ZOFRAN ODT8 MG PO
[2017-08-24 10:08] LABS: HEMATOCRIT 39.6 % (36.0-46.0); MCH 29.5 PG (29.0-34.0); MCHC 32.3 G/DL (30.0-36.0); MCV 91.2 FL (83-99); MEAN PLAT.VOLUME 10.7 uM^3 (9.5-12.4); PLATELET COUNT 248 K/uL (156-360); RBC DIS.WIDTH-CV 12.9 % (11.8-14.6); RBC DIS.WIDTH-SD 42.8 % (39-53); RED BLOOD COUNT 4.34 M/uL (3.80-5.20); WHITE BLOOD COUNT 6.8 K/uL (4.1-10.2)
[2017-08-24 10:16] LABS: ADD MIUA? YES; BILIRUBIN NEGATIVE; BLOOD MODERATE; COLOR YELLOW ((YELLOW)); GLUCOSE (STRIP) NEGATIVE; KETONES NEGATIVE; LEUKOCYTES LARGE; NITRITE NEGATIVE; PROTEIN (STRIP) NEGATIVE; SPECIFIC GRAVITY 1.026 (1.000-1.030)
[2017-08-24 10:21] LABS: BACTERIA RARE /HPF; EPITHELIAL CELLS 2+ /HPF; MUCUS 1+ /LPF; UCUL ADDED? YES; WHITE BLOOD CELLS 20-30 /HPF (0-5)
[2017-08-24 10:22] LABS: CHLORIDE 106 mEq/L (99-109); POTASSIUM 3.5 mEq/L (3.7-5.4); SODIUM 140 mEq/L (136-147)
[2017-08-24 10:25] LABS: GLUCOSE 109 mg/dL (70-99)
[2017-08-24 10:26] LABS: ANION GAP 8 MEQ/L (2-14)
[2017-08-24 10:27] LABS: TOTAL BILIRUBIN 0.6 mg/dL (0.0-1.0)
[2017-08-24 10:28] LABS: ALKALINE PHOSPHATASE 79 IU/L (3-129); GFR ESTIMATE (CALCULATED) > 59 mL/min/
[2017-08-24 10:29] LABS: UREA NITROGEN (BUN) 14 mg/dL (9-23)
[2017-08-24 10:40] LABS: QUANTITATIVE HCG < 4.0 MIU/ML
[2017-08-24] MEDS ORDERED: FLEET ENEMA-AD118 ML PR (12:12)
[2017-08-24] MEDS ORDERED: MILK OF MAGN PO (12:12)
[2017-08-24] MEDS ORDERED: CIPRO500 MG PO (12:13)
[2017-08-24] MEDS ORDERED: ZOFRAN ODT4 MG PO (12:13)
[2017-08-24 12:31] VITALS: BP 134/80
== END 2017-08-24 12:32 | disposition home or self-care (01) ==
LOC: EME 09:34
PROVIDERS: Physician Assistant
DX: J02.9 Acute pharyngitis, unspecified (principal); R05 Cough; R09.81 Nasal congestion; N39.0 Urinary tract infection, site not specified; K59.00 Constipation, unspecified; R11.2 Nausea with vomiting, unspecified; R51 Headache; I10 Essential (primary) hypertension; Z88.1 Allergy status to other antibiotic agents; Z88.2 Allergy status to sulfonamides
CPT/HCPCS: 71020; 74176; 80053; 81003; 84702; 85027; 87086; 87502; 99281; 99284

== ENCOUNTER 2017-09-02 15:43 | Emergency (ER) | payer OTHER ==
[~2017-09-02] VITALS: Ht 157.5 cm; Wt 67.2 kg
[~2017-09-02 15:43] MED LIST changes: +CIPRO500 MG PO; +FLEET ENEMA-AD118 ML PR; +MILK OF MAGN PO
[2017-09-02 16:15] LABS: HEMATOCRIT 40.1 % (36.0-46.0); MCHC 31.9 G/DL (30.0-36.0); MCV 90.7 FL (83-99); RBC DIS.WIDTH-SD 43.5 % (39-53); RED BLOOD COUNT 4.42 M/uL (3.80-5.20); WHITE BLOOD COUNT 7.3 K/uL (4.1-10.2)
[2017-09-02 16:22] LABS: CHLORIDE 107 mEq/L (99-109); POTASSIUM 3.9 mEq/L (3.7-5.4); SODIUM 141 mEq/L (136-147)
[2017-09-02 16:24] LABS: GLUCOSE 108 mg/dL (70-99)
[2017-09-02 16:26] LABS: ANION GAP 10 MEQ/L (2-14); TOTAL BILIRUBIN 0.5 mg/dL (0.0-1.0)
[2017-09-02 16:28] LABS: ALKALINE PHOSPHATASE 75 IU/L (3-129); GFR ESTIMATE (CALCULATED) > 59 mL/min/
[2017-09-02 16:29] LABS: UREA NITROGEN (BUN) 10 mg/dL (9-23)
[2017-09-02 16:37] LABS: QUANTITATIVE HCG < 4.0 MIU/ML
[2017-09-02 16:41] LABS: ADD MIUA? YES; BILIRUBIN NEGATIVE; BLOOD SMALL; COLOR YELLOW ((YELLOW)); GLUCOSE (STRIP) NEGATIVE; KETONES NEGATIVE; LEUKOCYTES LARGE; NITRITE NEGATIVE; PROTEIN (STRIP) NEGATIVE; UROBILINOGEN 0.2 MG/DL (0.2-1.0)
[2017-09-02 16:47] LABS: BACTERIA RARE /HPF; EPITHELIAL CELLS 4+ /HPF; MUCUS TRACE /LPF; UCUL ADDED? YES
[2017-09-02 16:48] LABS: MEAN PLAT.VOLUME 10.7 uM^3 (9.5-12.4); PLAT.SUFFICIENCY ADEQUATE
[2017-09-02 17:07] LABS: PLATELET COUNT 173 K/uL (156-360)
[2017-09-02] MEDS ORDERED: ZOFRAN4 MG PO (17:40)
[2017-09-02 17:46] VITALS: BP 138/86
== END 2017-09-02 17:46 | disposition home or self-care (01) ==
LOC: EME 15:43
PROVIDERS: Physician Assistant
DX: R11.2 Nausea with vomiting, unspecified (principal); R19.7 Diarrhea, unspecified; I10 Essential (primary) hypertension; F32.9 Major depressive disorder, single episode, unspecified; Z88.6 Allergy status to analgesic agent; Z88.2 Allergy status to sulfonamides; Z88.0 Allergy status to penicillin; Z88.1 Allergy status to other antibiotic agents; Z88.5 Allergy status to narcotic agent; Z88.8 Allergy status to other drugs, medicaments and biological substances; Z91.041 Radiographic dye allergy status
CPT/HCPCS: 80053; 81003; 84702; 85027; 87086; 87502; 99281; 99284

== ENCOUNTER 2017-10-13 18:33 | Emergency (ER) | payer OTHER ==
[~2017-10-13] VITALS: Ht 157.5 cm; Wt 68.8 kg
[2017-10-13 20:21] LABS: HEMATOCRIT 33.4 % (36.0-46.0); HEMOGLOBIN 10.9 G/DL (11.9-15.5); MCH 28.5 PG (29.0-34.0); MCHC 32.6 G/DL (30.0-36.0); MCV 87.4 FL (83-99); PLATELET COUNT 171 K/uL (156-360); RBC DIS.WIDTH-CV 13.5 % (11.8-14.6); RBC DIS.WIDTH-SD 43.2 % (39-53); RED BLOOD COUNT 3.82 M/uL (3.80-5.20); WHITE BLOOD COUNT 9.4 K/uL (4.1-10.2)
[2017-10-13] MEDS ORDERED: COMPAZINE10 MG PO (20:42)
[2017-10-13 20:45] LABS: CHLORIDE 108 mEq/L (99-109); POTASSIUM 3.9 mEq/L (3.7-5.4); SODIUM 141 mEq/L (136-147)
[2017-10-13 20:46] LABS: GLUCOSE 98 mg/dL (70-99)
[2017-10-13 20:50] LABS: CREATININE 0.7 mg/dL (0.6-1.3); GFR ESTIMATE (CALCULATED) > 59 mL/min/
[2017-10-13 20:51] LABS: UREA NITROGEN (BUN) 11 mg/dL (9-23)
[2017-10-13 20:58] LABS: QUANTITATIVE HCG < 4.0 MIU/ML
[2017-10-13 22:47] VITALS: BP 132/93
== END 2017-10-13 22:58 | disposition home or self-care (01) ==
LOC: EME 18:33
PROVIDERS: Emergency Medicine Emergency Medical Services
DX: G43.909 Migraine, unspecified, not intractable, without status migrainosus (principal); E86.0 Dehydration; R11.2 Nausea with vomiting, unspecified; R42 Dizziness and giddiness; I10 Essential (primary) hypertension; F32.9 Major depressive disorder, single episode, unspecified; Z88.1 Allergy status to other antibiotic agents; Z88.2 Allergy status to sulfonamides; Z88.6 Allergy status to analgesic agent
CPT/HCPCS: 80048; 84702; 85027; J0780; J7040

== ENCOUNTER 2017-11-16 10:22 | Emergency (ER) | payer OTHER ==
[~2017-11-16] VITALS: Ht 157.5 cm; Wt 67.3 kg
[~2017-11-16 10:22] MED LIST changes: +COMPAZINE10 MG PO
[2017-11-16] MEDS ORDERED: PROVENTIL HFA6.7 GM IH (12:56)
[2017-11-16 13:31] VITALS: BP 155/89
== END 2017-11-16 13:32 | disposition home or self-care (01) ==
LOC: EME 10:22
DX: J06.9 Acute upper respiratory infection, unspecified (principal); I10 Essential (primary) hypertension; F43.10 Post-traumatic stress disorder, unspecified; F32.9 Major depressive disorder, single episode, unspecified; Z91.041 Radiographic dye allergy status; Z88.6 Allergy status to analgesic agent; Z88.2 Allergy status to sulfonamides; Z88.0 Allergy status to penicillin; Z88.1 Allergy status to other antibiotic agents; Z88.8 Allergy status to other drugs, medicaments and biological substances
CPT/HCPCS: 71046; 87651 90; 99281; 99284

== ENCOUNTER 2017-12-17 12:00 | Emergency (ER) | payer OTHER ==
[~2017-12-17] VITALS: Ht 157.5 cm; Wt 63.6 kg
[~2017-12-17 12:00] MED LIST changes: +PROVENTIL HFA6.7 GM IH
[2017-12-17 12:49] LABS: HEMATOCRIT 39.9 % (36.0-46.0); HEMOGLOBIN 13.1 G/DL (11.9-15.5); MCH 29.5 PG (29.0-34.0); MCHC 32.8 G/DL (30.0-36.0); MCV 89.9 FL (83-99); PLATELET COUNT 249 K/uL (156-360); RBC DIS.WIDTH-CV 15.9 % (11.8-14.6); RBC DIS.WIDTH-SD 52.5 % (39-53); RED BLOOD COUNT 4.44 M/uL (3.80-5.20); WHITE BLOOD COUNT 10.8 K/uL (4.1-10.2)
[2017-12-17 13:00] LABS: ALBUMIN 4.2 g/dL (3.2-4.8); CHLORIDE 110 mEq/L (99-109); POTASSIUM 4.3 mEq/L (3.7-5.4); SODIUM 141 mEq/L (136-147)
[2017-12-17 13:03] LABS: GLUCOSE 100 mg/dL (70-99); TOTAL PROTEIN 7.2 g/dL (6.4-8.3)
[2017-12-17 13:05] LABS: TOTAL BILIRUBIN 0.4 mg/dL (0.0-1.0)
[2017-12-17 13:06] LABS: ALKALINE PHOSPHATASE 85 IU/L (3-129); CREATININE 0.8 mg/dL (0.6-1.3); GFR ESTIMATE (CALCULATED) > 59 mL/min/
[2017-12-17 13:07] LABS: UREA NITROGEN (BUN) 18 mg/dL (9-23)
[2017-12-17 13:08] LABS: AST (GOT) 13 IU/L (2-34)
[2017-12-17 13:09] LABS: ALT (GPT) 13 IU/L (3-49)
[2017-12-17 13:17] LABS: QUANTITATIVE HCG < 4.0 MIU/ML
[2017-12-17 16:53] LABS: APPEARANCE SL.HAZY ((CLEAR)); BILIRUBIN SMALL; BLOOD NEGATIVE; COLOR YELLOW ((YELLOW)); GLUCOSE (STRIP) NEGATIVE; KETONES NEGATIVE; LEUKOCYTES LARGE; NITRITE NEGATIVE; PROTEIN (STRIP) 100; SPECIFIC GRAVITY 1.032 (1.000-1.030); UROBILINOGEN 0.2 MG/DL (0.2-1.0)
[2017-12-17 17:03] LABS: BACTERIA RARE /HPF; EPITHELIAL CELLS 2+ /HPF; MUCUS TRACE /LPF; UCUL ADDED? NO; WHITE BLOOD CELLS 0-5 /HPF (0-5)
[2017-12-17 19:56] VITALS: BP 129/77
== END 2017-12-17 20:02 | disposition home or self-care (01) ==
LOC: EME 12:00
DX: R51 Headache (principal); R10.31 Right lower quadrant pain; I10 Essential (primary) hypertension; F32.9 Major depressive disorder, single episode, unspecified; Z88.2 Allergy status to sulfonamides; Z88.0 Allergy status to penicillin; Z88.1 Allergy status to other antibiotic agents; Z88.6 Allergy status to analgesic agent
CPT/HCPCS: 74176; 80053; 81003; 84702; 85027; 99281; 99285; J1200; J1885; J2765; J7030

== ENCOUNTER 2018-01-07 01:02 | Emergency (ER) | payer OTHER ==
[~2018-01-07] VITALS: Ht 157.5 cm; Wt 67.4 kg
[2018-01-07 01:26] LABS: HEMATOCRIT 38.1 % (36.0-46.0); HEMOGLOBIN 12.6 G/DL (11.9-15.5); MCHC 33.1 G/DL (30.0-36.0); MCV 90.7 FL (83-99); PLATELET COUNT 235 K/uL (156-360); RBC DIS.WIDTH-CV 14.9 % (11.8-14.6); RBC DIS.WIDTH-SD 49.6 % (39-53); WHITE BLOOD COUNT 12.5 K/uL (4.1-10.2)
[2018-01-07 01:36] LABS: ALBUMIN 4.2 g/dL (3.2-4.8); CHLORIDE 105 mEq/L (99-109); SODIUM 139 mEq/L (136-147)
[2018-01-07 01:39] LABS: GLUCOSE 93 mg/dL (70-99)
[2018-01-07 01:41] LABS: TOTAL BILIRUBIN 0.2 mg/dL (0.0-1.0)
[2018-01-07 01:42] LABS: ALKALINE PHOSPHATASE 98 IU/L (3-129); CREATININE 0.7 mg/dL (0.6-1.3); GFR ESTIMATE (CALCULATED) > 59 mL/min/
[2018-01-07 01:44] LABS: AST (GOT) 13 IU/L (2-34); UREA NITROGEN (BUN) 20 mg/dL (9-23)
[2018-01-07 01:45] LABS: ALT (GPT) 10 IU/L (3-49)
[2018-01-07 01:53] LABS: QUANTITATIVE HCG < 4.0 MIU/ML
[2018-01-07 02:13] LABS: APPEARANCE SL.HAZY ((CLEAR)); BILIRUBIN NEGATIVE; BLOOD NEGATIVE; COLOR YELLOW ((YELLOW)); GLUCOSE (STRIP) NEGATIVE; KETONES NEGATIVE; LEUKOCYTES LARGE; NITRITE NEGATIVE; PROTEIN (STRIP) NEGATIVE; SPECIFIC GRAVITY 1.025 (1.000-1.030); UROBILINOGEN 0.2 MG/DL (0.2-1.0)
[2018-01-07 02:18] LABS: BACTERIA RARE /HPF; EPITHELIAL CELLS 1+ /HPF; MUCUS TRACE /LPF; UCUL ADDED? YES
[2018-01-07] MEDS ORDERED: CIPRO500 MG PO (03:56)
[2018-01-07 04:05] LABS: SOURCE SWAB
[2018-01-07 04:42] VITALS: BP 124/84
== END 2018-01-07 04:44 | disposition home or self-care (01) ==
LOC: EME 01:02
PROVIDERS: Emergency Medicine
DX: N30.00 Acute cystitis without hematuria (principal); A59.9 Trichomoniasis, unspecified; I10 Essential (primary) hypertension; F32.9 Major depressive disorder, single episode, unspecified; Z88.6 Allergy status to analgesic agent; Z88.2 Allergy status to sulfonamides; Z88.1 Allergy status to other antibiotic agents; Z88.0 Allergy status to penicillin
CPT/HCPCS: 80053; 81003; 84702; 85027; 87086; 87210; 87491; 87591; 99281; 99284